=== PATIENT | female | born 1945 | race Caucasian/White ===

== ENCOUNTER 2017-06-28 12:11 | Emergency (ER) | payer BC, MEDICARE ==
[2017-06-28 12:49] VITALS: BP 130/78
--- NOTE | 2017-06-28 12:56 | UC ---
Hand/Wrist HPI - HPI Summary HPI Summary: 71 yo female inadvertently hit her right hand on a counter today She is right handed - History Of Current Complaint Chief Complaint: UCUpperExtremity Stated Complaint: HAND INJURY Time Seen by Provider: 06/28/17 12:55 Hx Obtained From: Patient Onset/Duration: Sudden Onset Severity Initially: Moderate Severity Currently: Mild Pain Intensity: 3 Pain Scale Used: 0-10 Numeric Character Of Pain: Sharp Aggravating Factor(s): Movement, Lifting, Flexion, Extension, Twisting, Pulling Alleviating Factor(s): Rest Associated Signs And Symptoms: Positive: Swelling Related History: Dominant Hand Right - Allergies/Home Medications Allergies/Adverse Reactions: Allergies Allergy/AdvReac Type Severity Reaction Status Date / Time Epinephrine Allergy Unknown Verified 06/28/17 12:37 Reaction Details Erythromycin Allergy Unknown Verified 06/28/17 12:37 Reaction Details Haloperidol Allergy Unknown Verified 06/28/17 12:37 Reaction Details Meperidine [From Demerol HCl] Allergy Unknown Verified 06/28/17 12:37 Reaction Details Home Medications: Home Medications Carbidopa/Levodop 25/250MG(*) [Sinemet 25/250 TAB(*)] 2,500 mg PO Q3HR 06/28/17 [History Confirmed 06/28/17] PMH/Surg Hx/FS Hx/Imm Hx Previously Healthy: Yes Neurological History: Other - parkinson's Other Neurological History: Parkinson's disease - Surgical History Surgical History: Yes Surgery Procedure, Year, and Place: T&A A CHILD. RT FEMUR SURGERY. JAW FRACTURED - Family History Known Family History: Positive: Hypertension - Social History Alcohol Use: Rare Substance Use Type: None Smoking Status (MU): Former Smoker Review of Systems Constitutional: Negative Skin: Negative Eyes: Negative ENT: Negative Respiratory: Negative Cardiovascular: Negative Gastrointestinal: Negative Genitourinary: Negative Motor: Negative Neurovascular: Negative Musculoskeletal: Arthralgia Neurological: Negative Psychological: Negative Is Patient Immunocompromised?: No All Other Systems Reviewed And Are Negative: Yes Physical Exam Triage Information Reviewed: Yes Appearance: Well-Appearing, No Pain Distress, Well-Nourished Vital Signs: Initial Vital Signs Temp 98.4 F 06/28/17 12:47 Pulse 78 06/28/17 12:47 Resp 18 06/28/17 12:47 BP 130/78 06/28/17 12:47 Pulse Ox 99 06/28/17 12:47 Vital Signs Reviewed: Yes Eyes: Positive: Conjunctiva Clear ENT: Positive: Hearing grossly normal. Negative: Nasal congestion, Nasal drainage, Trismus, Muffled/hoarse voice Neck: Positive: Supple, Nontender Respiratory: Positive: Lungs clear, Normal breath sounds, No respiratory distress, No accessory muscle use Cardiovascular: Positive: RRR, No Murmur Musculoskeletal: Positive: Other: - see Neurological: Positive: Alert, Other: - stigmata of Parkinson's Psychological Exam: Normal Skin Exam: Normal Procedures - Splinting Location: right upper estr Hand-Made Type: orthoglass Splint: ulnar - ulnar gutter splint Pre-Proc Neuro Vasc Exam: normal Post-Proc Neuro Vasc Exam: normal Diagnostics - Radiology No standard instances Xray Interpretation: Positive (See Comments) - 1. OBLIQUE DISPLACED SLIGHTLY ANGULAR FRACTURE OF THE FIFTH METACARPAL. 2. FINDINGS CONSISTENT WITH AN INFLAMMATORY ARTHROPATHY NOTE Radiology Interpretation Completed By: Radiologist Hand/Wrist Course/Dx - Differential Dx/Diagnosis Provider Diagnoses: displaced mid shaft fracture of right fifth metacarpal Discharge - Discharge Plan Condition: Stable Disposition: HOME Patient Education Materials: Hand Fracture (ED) Referrals: Jovanny Patel MD [Medical Doctor] - As Soon As Possible (call today to make an appt) Additional Instructions: you have a displaced mid shaft fracture of the right 5th metacarpal splint
--- NOTE | 2017-06-28 13:03 | RAD ---
INDICATION: Right hand injury. COMPARISON: Comparison is made with a prior x-ray study of the right hand from May 02, 2012. TECHNIQUE: 4 views of the right hand were obtained. FINDINGS: There is an oblique fracture extending through the mid diaphysis of the fifth metacarpal. The distal fragment is displaced approximately one shaft diameter lateral and slightly anterior and demonstrates mild anterior angulation relative to the proximal fragment. There is joint space narrowing hypertrophic and erosive change present in the distal interphalangeal joints. This is not well-defined on this study but appears most prominent in the second and third distal interphalangeal joints and has progressed from the prior exam most consistent with inflammatory arthropathy. There is also severe arthritic change in the first carpal metacarpal joint. IMPRESSION: 1. OBLIQUE DISPLACED SLIGHTLY ANGULAR FRACTURE OF THE FIFTH METACARPAL. 2. FINDINGS CONSISTENT WITH AN INFLAMMATORY ARTHROPATHY NOTED.
== END 2017-06-28 13:16 | disposition home or self-care (01) ==
LOC: UCEAST 12:11
DX: S62.326A Displaced fracture of shaft of fifth metacarpal bone, right hand, initial encounter for closed fracture (principal); G20 Parkinson's disease; W22.8XXA Striking against or struck by other objects, initial encounter; Y92.9 Unspecified place or not applicable
CPT/HCPCS: 99201; G0463